=== PATIENT | male | born 1960 | race Caucasian/White ===

== ENCOUNTER 2018-06-30 05:07 | Inpatient (IN) ==
[2018-06-30] MEDS ORDERED: Famotidine PF Inj 20 MG/2 ML Vial IV.PUSH ONE (05:24)
[2018-06-30] MEDS ORDERED: Dexamethasone Inj 20 MG/5 ML Vial IV.PUSH ONE (05:24)
[2018-06-30] MEDS ORDERED: Celecoxib 200 MG Capsule PO ONE (05:24)
[2018-06-30] MEDS ORDERED: Gabapentin 300 MG Capsule PO ONE (05:24)
[2018-06-30] MEDS ORDERED: Chlorhexidine Gluconate 2% 1 Pack (2 Cloths) TOPICAL SCH (05:30)
[2018-06-30] MEDS ORDERED: Chlorhexidine 4% Topical 120 APPLIC/120 ML Bottle TOPICAL SCH (05:30)
[2018-06-30] MEDS ORDERED: Metoprolol Tartrate 25 MG Tablet PO SCH (05:30)
[2018-06-30] MEDS ORDERED: SODIUM CHLOR 0.9% IV.SIG SCH (06:00)
[2018-06-30] MEDS ORDERED: Sodium Chlor 0.9% Inj 500 ML IV.SIG SCH (06:00)
[2018-06-30] MEDS ORDERED: Bupivacaine/Epi PF 0.25% Inj 20 ML, Bupivacaine Liposo PF 1.3% Inj 20 ML, Sodium Chlor ... P-ARTICULR SCH ×2 (06:00)
[2018-06-30] MEDS ORDERED: ceFAZolin 2 GM Premix Inj 2 GM/50 ML PIGGYBACK IV.SIG SCH (06:00)
[2018-06-30] MEDS ORDERED: Vancomycin Inj 1 GM/200 ML PIGGYBACK IV.SIG SCH ×2 (06:00→19:00)
[2018-06-30] MEDS ORDERED: TRANEXAMIC ACID IV.SIG SCH (06:00)
--- NOTE | 2018-06-30 07:35 | P.DCO ---
- Physical Therapy Physical Therapy: Gait training Hip: Total hip, Protocol: Left, Progress to weight bearing Right Lower Extremity Weight Bearing: Weight bearing as tolerated Left Lower Extremity Weight Bearing: Weight bearing as tolerated - Nursing Dressing changes: Daily dressing change (beginning on POD 6 with primapore. maintain surgical mesh on incision site. ) - Certification Need for Home Health services: I have seen patient Ovi Ferraro on 06/30/18. My clinical findings support the need for the requested home health care services because: Need for Home Health Services: Limited mobility due to disease progression Homebound Certification: I certify that my clinical findings support that this patient is homebound because: Homebound Certification: Post-op weakness
[2018-06-30] MEDS ORDERED: Promethazine 25 MG Supp RECTAL PRN (08:33)
[2018-06-30] MEDS ORDERED: Bisacodyl 10 MG Supp RECTAL PRN (08:33)
[2018-06-30] MEDS ORDERED: Morphine Inj 4 MG/ML Vial IV.PUSH PRN (08:33)
--- NOTE | 2018-06-30 08:38 | P.OP ---
- Preoperative Diagnosis (1) Osteoarthritis of left hip Date of procedure: 06/30/18 Procedure: Left total hip arthroplasty via anterior approach Anesthesia: GETA Surgeon: Christiano Fritz MD Die Cleaner: DANAE Gonzalez PA-C The surgical procedure was assisted by my physician assistant boiler operator. My P.A. presence was necessary throughout this case for the manipulation and positioning of the surgical extremity. My P.A. was assisting me throughout the duration of this procedure. The skill set of a physician assistant boiler operator was medically necessary to complete this procedure. During the surgical case the surgical garment assembly supervisor was working at the back table and the physician assistant boiler operator was directly assisting me. Operation and Findings: PLAN OF ACTIVITY Weight bear as tolerated. IMPLANTS USED DePuy Corail size [12] collared stem with a size [52] Blain Gription cup, [52 /32] Altrx poly liner, and a [32+1] Biolox ceramic head. DETAILS OF PROCEDURE: This patient has a long history of hip pain. Patient was found to have severe osteoarthritis. The patient had radiographic evidence of joint space narrowing with [id number] arthritis and osteophytes around the acetabulum as well as the femoral head. There was also some cystic changes. The patient failed conservative treatment with pain medications, anti-inflammatories, physical therapy, assistive devices including a cane, as well as therapeutic injection of the hip. Patient's hip arthritis was limiting his ability to ambulate and perform activities of daily living. The patient wished to proceed with surgery and informed consent was obtained. Operative site was marked. I discussed both posterior approach and anterior approach with the patient and decision was made for anterior approach. Patient was brought to OR and placed on OR table. IV sedation and general anesthesia was administered by anesthesiologist. Patient positioned on a Cassy table and was given IV antibiotics. Time-out procedure was performed. The hip and thigh were prepped with alcohol followed by Hibiclens. The thigh was draped in the usual sterile fashion. Clean Air Suite was used for this procedure. The procedure began with a 5-inch incision over the anterolateral thigh. Subcutaneous tissue was dissected with Bovie. The fascia over the tensa fasciae latae was incised. Care was taken to avoid injury to the lateral femoral cutaneous nerve. The tensor muscle was retracted laterally. Sartorius was retracted medially. Retractors were now placed. The reflected head of the rectus is now elevated. A capsulotomy was performed over the anterior head capsule. Sutures were placed to help retract the capsule. At this point the femoral head and neck were identified. With soft tissue protected, oscillating saw was used to make a cut through the femoral neck, the femoral head was now removed. At this point attention was turned to preparation of the acetabulum. The labrum was excised. The acetabulum was sequentially reamed up to size [52]. A Blain cup was now placed. Fluoroscopy was used to aid in identification of appropriate version. Cup was fully impacted and found to have excellent fit. Hole eliminator was now placed. The liner was now impacted into the cup. At this point the hip was externally rotated. A hook was placed around the proximal femur. The capsule was released off the lateral and medial femur. The hip was now extended and adducted. Retractors were placed around the proximal femur to allow for exposure. A box osteotome was used to remove the lateral cortex of the femoral neck. A broach was used to help lateralize the prosthesis. Canal finder was used to create a path down the canal. Next, the canal was sequentially broached up to size [12]. This was found to be an excellent fit. Calcar planer was placed. A standard head was placed, and the hip was reduced. The hip was found to have excellent stability with good range of motion. The leg lengths were measured under fluoroscopy and found to be equal compared to preoperatively. Trial broach was removed. The Corail stem was opened. Stem was fully impacted into the proximal femur in appropriate version. The femoral head was placed. The hip was again reduced. Fluoroscopy confirmed excellent alignment of prosthesis. The wound was thoroughly irrigated and capsule was closed with #1 Vicryl. The fascia over the tensor fasciae muscle was closed with #1 Vicryl, subcutaneous tissue was closed with 3-0 Vicryl and the skin was closed with jorge a and Dermabond skin closure. The capsule layers, muscle, and subcutaneous tissue were injected with a mixture of saline and bupivicaine. Dressings were applied. The patient was transferred to Recovery Room in stable condition.
[2018-06-30] MEDS ORDERED: Celecoxib 200 MG Capsule PO SCH (09:00)
[2018-06-30] MEDS ORDERED: Non-Formulary Drug (Omega 3-Dha-Epa-Fish Oil [Fish Oil] 1 CAP) PO SCH (09:00)
[2018-06-30] MEDS ORDERED: Naloxone Inj 0.4 MG/ML Vial ONE (09:09)
--- NOTE | 2018-06-30 09:23 | XR ---
EXAM DATE: 06/30/2018 9:11 AM EDT AGE/SEX: 58 years / Male INDICATIONS: Left total hip arthroplasty. CLINICAL DATA: This is the patient's initial encounter. Patient reports that signs and symptoms have been present for 1 day and indicates a pain score of Nonresponsive. MEDICAL/SURGICAL HISTORY: Non-responsive. Non-responsive. COMPARISON: No prior exams available for comparison. FINDINGS: Left hip arthroplasty in anatomic alignment. No significant acute fracture. CONCLUSION: 1. Left hip arthroplasty, as above. Electronically signed by: Justin Ureña MD 06/30/2018 9:21 AM EDT
[2018-06-30] MEDS ORDERED: Post-op Orders (for Pharmacy) OTHER STA (09:30)
[2018-06-30] MEDS ORDERED: *morphine SULFATE 10 MG/ML PERIprocedure ONLY ONE ×2 (09:30→10:12)
[2018-06-30] MEDS ORDERED: fentaNYL Citrate Inj 100 MCG/2 ML Ampul ONE (09:33)
[2018-06-30] MEDS ORDERED: *Meperidine Inj 25 MG/ML Vial PERIprocedural Use ONLY ONE (09:48)
[2018-06-30] MEDS ORDERED: Tranexamic Acid Inj 1,000 MG in Sodium Chlor 0.9% Inj 100 ML IV.SIG SCH (10:14)
--- NOTE | 2018-06-30 11:01 | XR ---
EXAM DATE: 06/30/2018 10:44 AM EDT AGE/SEX: 58 years / Male INDICATIONS: Post op left hip replacement CLINICAL DATA: This is the patient's initial encounter. Patient reports that signs and symptoms have been present for 1 day and indicates a pain score of Nonresponsive. MEDICAL/SURGICAL HISTORY: Non-responsive. . total left hip COMPARISON: No prior exams available for comparison. FINDINGS: Left total hip arthroplasty. There is a small amount of subcutaneous air about the left hip. Femoral and acetabular components appear well seated. There is severe osteoarthritis of the right hip. CONCLUSION: Postoperative changes. Electronically signed by: Rolando Rojas MD 06/30/2018 10:59 AM EDT
[2018-06-30] MEDS ORDERED: Neostigmine Inj 5 MG/5 ML Syringe IV.PUSH ONE (12:00)
[2018-06-30] MEDS ORDERED: Glycopyrrolate Inj 1 MG/5 ML Syringe IV.PUSH ONE (12:00)
[2018-06-30] MEDS ORDERED: Lidocaine PF 1% Inj 5 ML Syringe INFILTRATN ONE (12:00)
[2018-06-30] MEDS ORDERED: ceFAZolin Inj 2,000 MG in Sodium Chlor 0.9% Inj 80 ML IV.SIG SCH (15:00)
[2018-06-30] MEDS: ceFAZolin 2 GM Premix Inj 2 GM/50 ML PIGGYBACK IV.SIG SCH ×2 (15:39→23:14)
[2018-06-30] MEDS: Calcium/Vitamin D 250/125 MG Tablet PO SCH ×2 (17:59→19:15)
[2018-06-30] MEDS: Ketorolac Inj 30 MG/ML (IVP) Vial IV.PUSH SCH ×2 (19:13→23:15)
[2018-06-30] MEDS: Senna/Docusate Sodium 8.6/50 MG Tablet PO SCH ×2 (19:14→22:12)
[2018-06-30] MEDS: Carvedilol 12.5 MG Tablet PO SCH (19:14)
[2018-06-30] MEDS: amLODIPine 10 MG Tablet PO SCH (19:14)
[2018-06-30] MEDS: Vancomycin Inj 1,000 MG in Sodium Chlor 0.9% Inj 250 ML IV.SIG SCH (22:13)
[2018-07-01] MEDS: ceFAZolin 2 GM Premix Inj 2 GM/50 ML PIGGYBACK IV.SIG SCH (06:18)
--- NOTE | 2018-07-01 06:38 | P.PNOP ---
Subjective Interval history: Doing well day 1 from left total hip arthroplasty. Has been able to get back and forth to the bathroom with minimal assist. Is looking forward to home discharge today Physical Exam Vital signs: Vital Signs 06/30/18 09:21 06/30/18 09:30 06/30/18 09:45 Temperature 97.8 F Pulse Rate 94 H 87 77 Respiratory Rate 6 L 8 L 19 Blood Pressure 173/93 H 162/88 H 161/97 H Pulse Oximetry 99 98 96 06/30/18 10:00 06/30/18 10:15 06/30/18 10:30 Temperature Pulse Rate 83 81 74 Respiratory Rate 8 L 20 15 Blood Pressure 161/89 H 136/85 115/81 Pulse Oximetry 100 97 95 06/30/18 11:00 06/30/18 12:00 06/30/18 13:00 Temperature Pulse Rate 68 69 75 Respiratory Rate 9 L 12 14 Blood Pressure 114/76 125/76 134/77 Pulse Oximetry 93 L 96 98 06/30/18 14:00 06/30/18 17:00 06/30/18 20:00 Temperature 97.5 F L 98 F 97.3 F L Pulse Rate 76 81 78 Respiratory Rate 13 16 18 Blood Pressure 137/79 141/81 H 159/83 H Pulse Oximetry 95 95 96 07/01/18 00:00 07/01/18 04:00 Temperature 98.2 F 98.2 F Pulse Rate 82 90 Respiratory Rate 18 18 Blood Pressure 150/81 H 163/79 H Pulse Oximetry 95 97 Intake & Output 06/30/18 06/30/18 07/01/18 06:59 18:59 06:59 Intake Total 1750.14 / 1750.14 790 / 790 Output Total 200 / 200 Balance 1550.14 / 1550.14 790 / 790 Weight 100.9 kg 100.9 kg Intake: IV 1415.14 / 1415.14 50 / 50 LR 1000 mL Inj 1,000 ML @ 30 1000 / 1000 mls/hr IV.SIG .Q24H SAIDA Rx#: [id number] Cyklokapron Inj 1,514 MG In NS 115.14 / 115.14 Inj 100 ML @ 200 mls/hr IV.SIG ONCE SAIDA Rx#:[id number] Vancomycin Inj 1 gm In 200 ml @ 200 / 200 200 mls/hr IV.SIG TOOL MAINTENANCE WORKER SAIDA Rx#:[id number] Ancef 2 GM Premix Inj 2 gm In 100 / 100 50 / 50 50 ml @ 100 mls/hr IV.SIG Q8H SAIDA Rx#:[id number] Oral 740 / 740 Anesthesia Amount 335 / 335 Output: Urine 100 / 100 Estimated Blood Loss 100 / 100 Other: # Voids 1 2 Date of Last Bowel Movement 06/30/18 # Bowel Movements 1 Weight On Admission 100.9 kg Narrative: Left lower extremity: Clean dressings with 2 pinpoint spots of drainage of approximately 1 cm apiece. Mild swelling. Minimal pain with range of motion of hip. Full range of motion of knee and ankle. Distally intact sensation with active dorsiflexion plantar flexion of foot - Constitutional no acute distress Results - Labs Laboratory Results - last 24 hr 06/30/18 05:50 Blood Type O Positive Blood Type Recheck Required Antibody Screen Negative - Imaging Impressions Hip X-Ray 06/30/18 00:00 CONCLUSION: 1. Left hip arthroplasty, as above. Hip X-Ray 06/30/18 08:35 CONCLUSION: Postoperative changes. Assessment and Plan - Ortho Post Op Day # 1 - Problem List (1) Status post left hip replacement Code(s): Z96.642 - Presence of left artificial hip joint Status: Acute - Assessment and Plan Left total hip arthroplasty anterior approach POD 1 Weightbearing as tolerated left lower extremity physical therapy Maintain dressing Incentive spirometry 81 mg aspirin twice daily Plan for discharge to home today with home health care. Begin daily dressing changes 07/06/2018. Remove outer dressing only. Leave surgical tape over incision. Keep incision clean and dry with no showers Follow-up with Dr. Fam or PA in 2 weeks
[2018-07-01 06:48] LABS: Hematocrit 36.5 % (39.0-51.0); Hemoglobin 12.3 gm/dL (13.0-17.0)
[2018-07-01] MEDS ORDERED: Celecoxib 200 MG Capsule PO SCH (09:00)
--- NOTE | 2018-07-01 09:15 | P.DS ---
Date of admission: 06/30/18 05:07 Primary care physician: Aminata Lama Attending physician on discharge: Christiano Fam Brief History from admission: Patient admitted for elective left total hip arthroplasty. He has been suffering from osteoarthritis in bilateral hips for multiple years. The left hip is greater than the right. He exhausted all conservative measures which included activity modification, anti-inflammatory therapy, steroid injections. Decision was made to move forward with an elective left total hip arthroplasty DS: Diagnosis - Discharge Diagnosis (1) Status post left hip replacement Status: Acute DS: Summary Hospital Course: Patient admitted for elective left total hip arthroplasty. He tolerated the procedure well. He was admitted to [facility]. He was out of bed and ambulating on postop day 0. By postop day 1, his pain was well controlled, he was ambulating well with a walker, and he is fit for discharge home with home health care. He will remain fully weightbearing in the left leg. He will maintain his surgical dressing for 6 days and begin daily dressing changes of the outer dressing only on postop day 7. He will maintain the surgical mesh. He will keep clean and dry. He will follow-up in the office with Dr. Fam or his PA in 2 weeks. He will begin aspirin 81 mg twice daily for DVT prophylaxis. - Time Spent with Patient Total time spent providing and/or coordinating discharge services: Exam Vital signs: Vital Signs 06/30/18 09:21 06/30/18 09:30 06/30/18 09:45 Temperature 97.8 F Pulse Rate 94 H 87 77 Respiratory Rate 6 L 8 L 19 Blood Pressure 173/93 H 162/88 H 161/97 H Pulse Oximetry 99 98 96 06/30/18 10:00 06/30/18 10:15 06/30/18 10:30 Temperature Pulse Rate 83 81 74 Respiratory Rate 8 L 20 15 Blood Pressure 161/89 H 136/85 115/81 Pulse Oximetry 100 97 95 06/30/18 11:00 06/30/18 12:00 06/30/18 13:00 Temperature Pulse Rate 68 69 75 Respiratory Rate 9 L 12 14 Blood Pressure 114/76 125/76 134/77 Pulse Oximetry 93 L 96 98 06/30/18 14:00 06/30/18 17:00 06/30/18 20:00 Temperature 97.5 F L 98 F 97.3 F L Pulse Rate 76 81 78 Respiratory Rate 13 16 18 Blood Pressure 137/79 141/81 H 159/83 H Pulse Oximetry 95 95 96 07/01/18 00:00 07/01/18 04:00 07/01/18 08:00 Temperature 98.2 F 98.2 F 97.4 F L Pulse Rate 82 90 73 Respiratory Rate 18 18 18 Blood Pressure 150/81 H 163/79 H 171/98 H Pulse Oximetry 95 97 96 Intake & Output 06/30/18 07/01/18 07/01/18 18:59 06:59 18:59 Intake Total 1750.14 / 1750.14 790 / 790 Output Total 200 / 200 Balance 1550.14 / 1550.14 790 / 790 Weight 100.9 kg Intake: IV 1415.14 / 1415.14 50 / 50 LR 1000 mL Inj 1,000 ML @ 30 1000 / 1000 mls/hr IV.SIG .Q24H SAIDA Rx#: [id number] Cyklokapron Inj 1,514 MG In NS 115.14 / 115.14 Inj 100 ML @ 200 mls/hr IV.SIG ONCE SAIDA Rx#:[id number] Vancomycin Inj 1 gm In 200 ml @ 200 / 200 200 mls/hr IV.SIG PUMP ERECTOR HELPER SAIDA Rx#:[id number] Ancef 2 GM Premix Inj 2 gm In 100 / 100 50 / 50 50 ml @ 100 mls/hr IV.SIG Q8H SAIDA Rx#:[id number] Oral 740 / 740 Anesthesia Amount 335 / 335 Output: Urine 100 / 100 Estimated Blood Loss 100 / 100 Other: # Voids 1 2 Date of Last Bowel Movement 06/30/18 # Bowel Movements 1 Narrative: LLE: dressing clean and dry. intact. NVI Results Procedures completed during hospitalization: Left anterior total hip arthroplasty Labs on day of discharge: Labs from last 24 hours 07/01/18 07/01/18 06:25 06:25 Hgb 12.3 L Hct 36.5 L Vit D 1,25-Dihydroxy Pending - Impressions ITS Impressions Hip X-Ray 06/30/18 08:35 CONCLUSION: Postoperative changes. Discharge Plan - Discharge Disposition Patient Disposition: /Home Health Service - Discharge Condition Condition: Good - Discharge Order Discharge Orders: Discharge Order (Routine); Ordered 07/01/18 Ordered By: Chapin Kang - Discharge Details Anticipated Discharge Date: 06/03/18 Discharge Comment: scripts sent to [facility] - Physicians Team Attending Provider: Christiano Fam Other Providers: [facility] - Rxs /Orders / Referrals /Forms Prescriptions: Continue amlodipine 10 mg Tablet 10 mg PO DAILY atorvastatin 20 mg Tablet 20 mg PO DAILY carvedilol 12.5 mg Tablet 12.5 mg PO DAILY omega 9-cqo-jrb-fish oil [Fish Oil] 1,000 mg (120 mg-180 mg) Capsule 1 cap PO DAILY vit C-s.wephil-onwtnw-xbptx sd [[place]] [id number] mg Capsule 1 cap PO DAILY Referrals: Aminata Lama [Other] - See Instructions Christiano Fam MD [Physician] - See Instructions (2 weeks, Your appointment has been scheduled for Friday07/16/18 at 1:35PM If you cannot make this appointment, please call the office to reschedule )
[2018-07-01] MEDS: Vancomycin Inj 1,000 MG in Sodium Chlor 0.9% Inj 250 ML IV.SIG SCH (09:20)
[2018-07-01] MEDS: Carvedilol 12.5 MG Tablet PO SCH (09:21)
[2018-07-01] MEDS: amLODIPine 10 MG Tablet PO SCH (09:21)
[2018-07-01] MEDS: Senna/Docusate Sodium 8.6/50 MG Tablet PO SCH (09:21)
[2018-07-01] MEDS: Calcium/Vitamin D 250/125 MG Tablet PO SCH (09:22)
[2018-07-01 12:18] VITALS: BP 139/70; PULSE 67; RESP 17; TEMP 97.9; O2SAT 94
== END 2018-07-01 15:01 | disposition home health service (06) ==
LOC: HSDI 05:07 → N06 14:45
PROVIDERS: ADMIT Orthopaedic Surgery Orthopaedic Trauma; ATTEND Orthopaedic Surgery Orthopaedic Trauma